=== PATIENT | female | born 1970 | race African-American/Black ===

== ENCOUNTER 2018-03-07 19:02 | Inpatient (IN) | payer BC, OTHER ==
[~2018-03-07] VITALS: Ht 157.5 cm; Wt 72.6 kg
--- NOTE | 2018-03-07 20:00 | NUR ---
INTAKE ASSESSMENT Pt appeared intoxicated,seen holding a coffee mug,when asked "what are you drinking?",she answered "wine".Pt is a/o x 3,lethargic,dozing on and off,vital signs are stable,no c/o pain noted. Pt is A/O X 3. Pt stated that she has been drinking 3 to 4 bottles of Wine (750 ml each) on a daily basis for approximately past 2 months. Pt stated that she was at a treatment center in December 2017,where she stayed for 22 days and began drinking on the same day when she was discharged. Her longest period of sobriety was 22 days in December 2017,while she was at the treatment center. Prior to that she has been drinking since she was 12 years old.
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
[2018-03-07] MEDS ORDERED: DIAZEPAM 10 MG TABLET PO PRN ×2 (21:45)
[2018-03-07] MEDS ORDERED: MAG HYDROX/AL HYDROX/SIMETH 30 ML LIQUID UDC PO PRN (21:45)
[2018-03-07] MEDS ORDERED: IBUPROFEN 600 MG TABLET PO PRN (21:45)
[2018-03-07] MEDS ORDERED: ONDANSETRON ODT 4 MG TAB.RAPDIS SL PRN (21:45)
[2018-03-07] MEDS ORDERED: THIAMINE HCL 200 MG/2 ML VIAL IM ONE (21:45)
[2018-03-07] MEDS ORDERED: LORAZEPAM 2 MG/1 ML VIAL IM PRN (21:45)
[2018-03-07] MEDS ORDERED: diphenhydrAMINE 50 MG CAPSULE PO PRN (21:45)
[2018-03-07] MEDS ORDERED: DIAZEPAM 5 MG TABLET PO PRN (21:45)
[2018-03-07] MEDS ORDERED: LOPERAMIDE HCL 2 MG CAPSULE PO PRN ×2 (21:45)
[2018-03-07] MEDS ORDERED: ONDANSETRON 4 MG/2 ML VIAL IM PRN (21:45)
[2018-03-07] MEDS ORDERED: CLONIDINE HCL 0.1 MG TABLET PO PRN (21:45)
[2018-03-07] MEDS ORDERED: MAGNESIUM HYDROXIDE 30 ML LIQUID UDC PO PRN (21:45)
[2018-03-07 21:52] LABS: BASOPHILS # (AUTO) 0.1 K/uL (0.0-8.0); EOSINOPHILS # (AUTO) 0.1 K/uL (0.0-0.7); HEMATOCRIT 37.1 % (31.2-41.9); HEMOGLOBIN 12.2 g/dL (10.9-14.3); LYMPHOCYTES # (AUTO) 1.7 K/uL (20.0-40.0); MEAN CORPUSCULAR HEMOGLOBIN 31.3 uug (24.7-32.8); MEAN CORPUSCULAR HGB CONC 33 g/dL (32.3-35.6); MEAN CORPUSCULAR VOLUME 95.4 fL (75.5-95.3); MONOCYTES # (AUTO) 0.3 K/uL (2.0-10.0); MONOCYTES % (AUTO) 5.8 % (0.0-11.0); NEUTROPHILS # (AUTO) 3.5 K/uL (1.8-8.9); NEUTROPHILS % (AUTO) 61.2 % (38.5-71.5); PLATELET COUNT (AUTO) 198 K/uL (179-408); RED BLOOD CELL COUNT(AUTO) 3.89 MIL/uL (3.63-4.92); WHITE BLOOD COUNT (AUTO) 5.6 K/uL (3.8-11.8)
[2018-03-07 22:16] LABS: BILIRUBIN,TOTAL 0.2 mg/dL (0.2-1.0); CREATININE 0.9 mg/dL (0.6-1.3); MAGNESIUM 2.2 mg/dL (1.8-2.4); TOTAL PROTEIN, SERUM 8.2 g/dL (6.4-8.2)
[2018-03-07] MEDS ORDERED: ALBU6.7H INH (22:16)
[2018-03-07] MEDS ORDERED: SERT50TA PO (22:16)
[2018-03-07] MEDS ORDERED: HYDR-3026 PO (22:16)
[2018-03-07] MEDS ORDERED: TRAZ-182 PO (22:16)
[2018-03-07 22:27] LABS: THYROID STIMULATING HORMONE 1.334 mIU/mL (0.358-3.740)
[2018-03-07 22:29] LABS: *AMPHETAMINE, URINE NEGATIVE (NEGATIVE); *BARBITURATE, URINE NEGATIVE (NEGATIVE); *CANNABINOID, URINE NEGATIVE (NEGATIVE); *COCCAINE, URINE NEGATIVE (NEGATIVE); *OPIATE, URINE NEGATIVE (NEGATIVE); *PHENCYCLIDINE SCREEN,URINE NEGATIVE (NEGATIVE)
[2018-03-07 22:53] LABS: *URINE HCG, QUAL NEGATIVE (NEGATIVE)
--- NOTE | 2018-03-07 23:51 | NUR ---
PRN MOTRIN 600 MG PO GIVEN FOR C/O HEADACHE 12/03.WILL MONITOR FOR EFFECTIVENESS.
[2018-03-08] MEDS ORDERED: ONDA4TAB8 SL (00:41)
[2018-03-08] MEDS ORDERED: BISA-79 PO (00:41)
[2018-03-08] MEDS ORDERED: DIPH25CA83 PO (00:41)
[2018-03-08] MEDS ORDERED: PEPP90CA PO (00:41)
--- NOTE | 2018-03-08 01:00 | NUR ---
PRN REASSESSMENT Pi is calm and sleeping in bed,no s/s of distress noted,breathing is even and non labored. All safety measures are in place, call light is within reach, will continue to monitor.
[2018-03-08] MEDS ORDERED: TRIA80OI TP (01:49)
[2018-03-08] MEDS ORDERED: SIME180C7 PO (01:49)
[2018-03-08] MEDS ORDERED: BRIM2.5D OP (01:49)
[2018-03-08] MEDS ORDERED: TRIA100A TP (01:49)
[2018-03-08] MEDS ORDERED: THIA100T13 PO (01:49)
[2018-03-08] MEDS ORDERED: BECL10.62 IH ×2 (01:49)
[2018-03-08] MEDS ORDERED: [UNRECOGNIZED DRUG - CODE] TP (01:49)
[2018-03-08] MEDS ORDERED: hydroxycut (01:49)
[2018-03-08] MEDS ORDERED: PSYL0.5245 PO (01:49)
[2018-03-08] MEDS ORDERED: ALPH1TAB9 PO (01:49)
[2018-03-08] MEDS ORDERED: EPIN0.3A4 IM (01:49)
[2018-03-08] MEDS ORDERED: [UNRECOGNIZED DRUG - OTHER] PO (01:49)
[2018-03-08] MEDS ORDERED: CHOL200059 PO (01:49)
[2018-03-08] MEDS ORDERED: AZEL23SP NS (01:49)
[2018-03-08] MEDS ORDERED: ENZY1CAP5 PO (01:49)
[2018-03-08] MEDS ORDERED: [UNRECOGNIZED DRUG - CODE] PO (01:49)
[2018-03-08] MEDS ORDERED: HYDR50CA5 PO (01:49)
[2018-03-08] MEDS ORDERED: CYAN10009 PO (01:49)
[2018-03-08] MEDS ORDERED: OMEG1CAP74 PO (01:49)
[2018-03-08] MEDS ORDERED: BIOT300T2 PO (01:49)
[2018-03-08] MEDS ORDERED: POLY119P2 PO (01:49)
[2018-03-08] MEDS ORDERED: LACT1CAP57 PO (01:49)
[2018-03-08] MEDS ORDERED: CALC600T12 PO (01:49)
[2018-03-08] MEDS ORDERED: ALBU8.5H8 IH (01:49)
[2018-03-08 04:00] VITALS: BP 100/56
--- NOTE | 2018-03-08 04:00 | NUR ---
Unable to assess for CIWA due to pt being asleep.
--- NOTE | 2018-03-08 06:53 | NUR ---
END OF SHIFT Pt is a 47 y/o female admitted to [facility] for medically supervised withdrawals from Alcohol. Unable to perform a CIWA assessment upon admission due to Pt being heavily intoxicated. Pt was given PRN Motrin for headache and it was noted to be effective.Pt slept 8 hours,fluid intake was 500 ml,voided x1. All safety measures are in place, call light is within reach, will endorse care to day shift nurse to continue to monitor for safety.
[2018-03-08 08:00] VITALS: BP 92/57
--- NOTE | 2018-03-08 08:00 | NUR ---
Start of Shift Notes: Report received from night supervisor nurse. Upon start of shift pt was in bed with eyes closed. Pts expression is anxious and worried. Skin is warm and dry. Pt denies pain at this time. Pt is currently on Valium taper to manage withdrawal symptoms. Bed in lowest position. Side rails up x2. Call light functioning and within reach. All needs attended and met. Will continue to monitor.
--- NOTE | 2018-03-08 08:30 | NUR ---
CIWA 11 Pt noted with tremors, diaphoresis, and anxiety/agitation. CIWA 11.
[2018-03-08] MEDS ORDERED: TUBERCULIN,PURIF.PROT.DERIV. 5 TU/0.1 ML TEST ID ONE (09:00)
[2018-03-08] MEDS ORDERED: 5 DAY TAPER VALIUM-SERENITY PROTOCOL PO PRN (09:00)
[2018-03-08] MEDS: THIAMINE HCL 100 MG TABLET PO SCH (09:15)
[2018-03-08] MEDS: MULTIVITAMINS,THERAPEUTIC TABLET PO SCH (09:15)
[2018-03-08] MEDS: DIAZEPAM 10 MG TABLET PO SCH ×3 (09:16→21:06)
[2018-03-08] MEDS: FOLIC ACID 1 MG TABLET PO SCH (09:16)
[2018-03-08 12:00] VITALS: BP 115/82
--- NOTE | 2018-03-08 12:00 | NUR ---
CIWA 9 Pt noted with slight tremors, slight diaphoresis, and anxiety/agitation. CIWA 9
[2018-03-08] MEDS ORDERED: TRIAMCINOLONE ACET 0.025% OINT 15 GM TUBE TP SCH (14:45)
[2018-03-08] MEDS ORDERED: TRIAMCINOLONE ACETONIDE TOP PRN (14:45)
[2018-03-08] MEDS: DYMISTA NS SCH (15:51)
[2018-03-08] MEDS: LACTOBACILLUS RHAMNOSUS GG 1 EACH CAPSULE PO SCH (15:51)
[2018-03-08 16:00] VITALS: BP 125/93
--- NOTE | 2018-03-08 16:00 | NUR ---
CIWA 8 Pt noted with non-visible tremors, barely sweating, and mild anxiety/agitation. CIWA 8.
[2018-03-08] MEDS: TRIAMCINOLONE ACET 0.1% CREAM 15 GM TUBE TOP SCH (16:30)
--- NOTE | 2018-03-08 19:14 | NUR ---
End of Shift Note: Pt currently in room, resting. Pt had no complaints during shift. No PRNs given. Pts last CIWA was 8 at 1600. Pt continues on Valium taper to manage withdrawal symptoms. During shift pt was staying in bed without leaving room. Pt noted with some anxiety about leaving room. Encouraged pt to go to group activity. Pt refused to go today. Will continue encouragement. Allowed pt to verbalize feelings. Fall precautions observed. Bed in lowest position. Side rails up x2. Call light functioning and within reach. All needs attended and met. Will endorse to slot shift manager nurse.
--- NOTE | 2018-03-08 19:30 | NUR ---
START OF SHIFT Pt is a 47 y/o female admitted on 03/07/18 for ETOH withdrawal. Pt is on a 5 day Valium taper, tolerating well. Pt received no PRNs and last CIWA 8 during day shift. Upon assessment pt presents with anxiety, sweats, chills, agitation, and unkempt room. Medications due. Safety measures in place. Call light within reach. Will continue to monitor.
[2018-03-08 20:00] VITALS: BP 126/84
--- NOTE | 2018-03-08 20:00 | NUR ---
CIWA ASSESSMENT Pt presents with anxiety, sweats, chills, agitation, and unkempt room. Pt laying in bed watching TV.
[2018-03-09] VITALS: BP 123/83
--- NOTE | 2018-03-09 | NUR ---
CIWA DEFERRED Pt is laying in bed with eyes closed, CIWA deferred, to be assessed when pt is awake per orders. Respirations even and unlabored. Safety measures in place. Call light within reach. Will continue to monitor.
[2018-03-09 04:06] LABS: HEPATITIS B SURFACE AG Negative (Negative)
--- NOTE | 2018-03-09 07:19 | NUR ---
END OF SHIFT Pt is a 47 y/o female admitted on 03/07/18 for ETOH withdrawal. Pt is on a 5 day Valium taper, tolerating well. Pt presented with anxiety, sweats, chills, agitation, disheveled appearance, and unkempt room. Scheduled medication Valium 10 mg administered, effective in S/S of withdrawal as verbalized by pt. Last CIWA 8. Pt slept 9 hours. Intake 1500 ml, void x 2, stool x 0. Safety measures in place. Call light within reach. Pts needs have been met. Endorsed to day shift nurse.
--- NOTE | 2018-03-09 07:40 | NUR ---
START OF SHIFT NOTE Received report from night nurse, 47 year old female admitted for ETOH withdrawal and patient continues with 5 days Valium taper tolerating well. Per endorsement patient received No PRN'S, slept for 9 hours, last CIWA-8. Received patient asleep responsive to verbal and tactile stimuli. Breathing normal no SOB noted. Skin intact warm and dry to touch. All safety measures in place, call light within reach. Will cont with plan of care.
[2018-03-09 08:00] VITALS: BP 139/92
[2018-03-09] MEDS: THIAMINE HCL 100 MG TABLET PO SCH (08:13)
[2018-03-09] MEDS: FOLIC ACID 1 MG TABLET PO SCH (08:13)
[2018-03-09] MEDS: DIAZEPAM 5 MG TABLET PO SCH ×4 (08:13→20:50)
[2018-03-09] MEDS: LACTOBACILLUS RHAMNOSUS GG 1 EACH CAPSULE PO SCH (08:13)
[2018-03-09] MEDS: DYMISTA NS SCH (08:13)
[2018-03-09] MEDS: SERTRALINE HCL 50 MG TABLET PO SCH (08:13)
[2018-03-09] MEDS: MULTIVITAMINS,THERAPEUTIC TABLET PO SCH (08:13)
--- NOTE | 2018-03-09 08:13 | NUR ---
CIWA ASSESSMENT CIWA score noted-10, patient presented with sad facial expression, anxious, agitated, restless, fatigue, c/o sweats, bilateral hand tremors noted. Patient was given her scheduled medications. Will cont to monitor.
[2018-03-09] MEDS: TRIAMCINOLONE ACET 0.1% CREAM 15 GM TUBE TOP SCH ×2 (08:14→16:10)
--- NOTE | 2018-03-09 10:42 | NUR ---
Therapist prompted client to attend all group therapy sessions.
[2018-03-09 12:00] VITALS: BP 127/85
--- NOTE | 2018-03-09 12:10 | NUR ---
CIWA ASSESSMENT CIWA score noted-9, patient continues to presented with following s/s of such as anxious, agitated, restless, fatigue, sweats, bilateral hand tremors. Patient received her scheduled medications. Will cont to monitor.
[2018-03-09 16:00] VITALS: BP 123/82
--- NOTE | 2018-03-09 19:05 | NUR ---
END OF SHIFT NOTE Gave report to night nurse, 47 year old female admitted for ETOH withdrawal and continues with Valium taper tolerating well. Skin intact warm and dry to touch. Patient presented with sad facial expression, anxious, irritable, anhedonia, depressed mood, anxious, agitated, body aches, bilateral hand tremors. Patient was given her scheduled medications. No PRN administered during shift. Patient was not well enough to participates in group today and rested in her room most of the shift. Appetite good, encourage PO fluids as tolerated. Vital signs WNL. Patient denies any SI/HI. Last CIWA score was 10 at 1600. All needs attended and met. All safety measures in place. Endorse patient to night nurse in stable condition.
--- NOTE | 2018-03-09 19:10 | NUR ---
Start of Shift Received 47 year old female patient admitted 03/07/18 to [facility] for medically supervised withdrawal from ETOH. Pt is currently on day 2 of a 5 day Valium taper, which she is tolerating well. Pt did not receive any PRN medications on day shift. Last CIWA 10 @1600. Pt in room watching TV. Pt is awake, alert, anxious, agitated, flat affect, and isolative. Bed is low, side rails up x 2, and call groves in reach. Will continue to monitor.
[2018-03-09 20:00] VITALS: BP 118/85
--- NOTE | 2018-03-09 20:00 | NUR ---
CIWA 9 Pt is awake, alert, anxious, agitated, flat affect, and isolative.
[2018-03-09] MEDS: diphenhydrAMINE 50 MG CAPSULE PO PRN (20:58)
--- NOTE | 2018-03-09 20:58 | NUR ---
PRN Benadryl Pt requested something to help sleep. PRN Benadryl given per order. Will monitor effect.
--- NOTE | 2018-03-09 21:59 | NUR ---
Reassess PRN Benadryl Medication effective. Pt resting with eyes closed. Respirations are even and unlabored. Continue to monitor.
--- NOTE | 2018-03-10 | NUR ---
CIWA deferred and Vitals refused Pt resting with eyes closed. Respirations are even and unlabored. CIWA deferred and pt refused vitals. Continue to monitor.
--- NOTE | 2018-03-10 04:00 | NUR ---
CIWA deferred and Vitals refused Pt resting with eyes closed. Respirations are even and unlabored. CIWA deferred and pt refused vitals. Continue to monitor.
--- NOTE | 2018-03-10 06:46 | NUR ---
End of Shift Endorsing 47 year old female patient admitted 03/07/18 to [facility] for medically supervised withdrawal from ETOH. Pt is currently on day 3 of a 5 day Valium taper, which she is tolerating well. Pt received PRN Benadryl on restaurant shift leader. Last CIWA 9 @1999. Pt resting with eyes closed. Respirations are even and unlabored. Bed is low, side rails up x 2, and call groves in reach. PO intake 855 ml, voided x 2, BM x 0, and slept 9 hours.
[2018-03-10 08:00] VITALS: BP 119/80
--- NOTE | 2018-03-10 08:00 | NUR ---
Start of Shift Notes/CIWA Assessment: Received endorsement from night nurse. Patient is a 47 year old female admitted for ETOH withdrawal who was placed on a 3-day Valium taper as ordered. No adverse reactions noted. Per night report, patient was given PRN Benadryl during the night. Last CIWA 9. Slept for 9 hours. Received patient in her room. Alert and oriented x 4. DenieS S/I or H/I noted. No AV hallucinations noted. Appears worried, diaphoretic, gross tremors with worried facial expression. Garbage found around the room. Encouraged patient to maintain her personal hygiene and space. Educated patient on her current plan of care for the day and her medication regimen. Encouraged oral fluid intake and encouraged group participation to learn new skills to prevent relapse. All needs met and attended. Will continue to monitor.
[2018-03-10] MEDS: DYMISTA NS SCH (08:22)
[2018-03-10] MEDS: TRIAMCINOLONE ACET 0.1% CREAM 15 GM TUBE TOP SCH ×2 (08:23→17:00)
[2018-03-10] MEDS: LACTOBACILLUS RHAMNOSUS GG 1 EACH CAPSULE PO SCH (08:25)
[2018-03-10] MEDS: SERTRALINE HCL 50 MG TABLET PO SCH (08:25)
[2018-03-10] MEDS: THIAMINE HCL 100 MG TABLET PO SCH (08:25)
[2018-03-10] MEDS: FOLIC ACID 1 MG TABLET PO SCH (08:25)
[2018-03-10] MEDS: DIAZEPAM 5 MG TABLET PO SCH ×3 (08:25→21:06)
[2018-03-10] MEDS: MULTIVITAMINS,THERAPEUTIC TABLET PO SCH (08:25)
[2018-03-10 12:00] VITALS: BP 108/65
--- NOTE | 2018-03-10 12:23 | NUR ---
CIWA Assessment: CIWA 11, patient continues to present with s/s of withdrawal mb gross tremors, anxiety, sweating, agitation, restlessness and fatigue. Offered PRNs. Support provided. Will continue to monitor.
--- NOTE | 2018-03-10 15:00 | NUR ---
Valium 5 mg PO not administered: Patient refused her 1500 dose of Valium 5 mg PO. She states "It's making me too sleepy and I want to go to group." Educated patient on seizure risk and benefits of taking meds but patient still refused. Offered 3 x still refused. Valium 5 mg PO not administered.
[2018-03-10 16:00] VITALS: BP 96/65
--- NOTE | 2018-03-10 17:15 | NUR ---
Kenalog cream at 1700 not administered: Patient refused Kenalog cream at this time for her scalp. She states "I don't need it right now." Education provided. Will continue to monitor.
--- NOTE | 2018-03-10 19:01 | NUR ---
End of Shift Notes: Patient continues to be on 3-day Valium taper as ordered to manage symptoms related to ETOH withdrawal. VS monitored. No significant abnormalities noted. Withdrawal symptoms were closely monitored. Initial CIWA 14, patient presented with diaphoresis, facial flushing, gross tremors, anxiety, agitation, restlessness, worried facial expression, difficulty concentrating and generalized discomfort. Last CIWA 11. Patient verbalized that Valium has been effective in reducing her withdrawal symptoms. All meds given as ordered. Patient was encouraged to participate in group and activities due to episodes of self isolaton. Appetite good. All needs met and attended. Will continue to monitor closely.
--- NOTE | 2018-03-10 19:30 | NUR ---
Start of Shift Patient Received. Per endorsement, Patient continues on a modified 5 day Valium. Patient has been noted to be isolative to room and non-compliant with group and social activities. No PRN medications administered. Patient was noted to refuse 1500 scheduled dose of Valium. Last noted CIWA 11. Upon rounds, patient is noted in bed awake alert and verbally responsive. Breathing even and non labored. Patient is noted to be disheveled with worried affect. She is noted to be anxious, restless, tremulous to touch, intermittent chills and sweats. Reviewed 2100 medications with patient and she was able to verbalize understanding. Encouraged patient to attended current group meeting but she refused. All needs attended to promptly. Will continue plan of care as ordered.
--- NOTE | 2018-03-10 20:00 | NUR ---
CIWA Assessment Patient continues to be monitored for increased signs and symptoms of ETOH Withdrawal. She is noted with increased anxiety, restlessness, is easily irritable, intermittent chills and sweats, and is tremulous to touch. Will administer medications as ordered.
[2018-03-10 20:52] VITALS: BP 114/76
[2018-03-10] MEDS: diphenhydrAMINE 50 MG CAPSULE PO PRN (21:08)
--- NOTE | 2018-03-10 21:09 | NUR ---
PRN medication Administration Patient is noted verbalizing inability of falling asleep. PRN Benadryl administered. Will continue to monitor.
--- NOTE | 2018-03-10 22:00 | NUR ---
PRN Medication Reassessment Patient is noted in bed with eyes closed. Breathing even and non labored. No signs of restlessness or facial grimacing noted. patient received PRN Benadryl with medication noted to be effective. Will continue to monitor.
--- NOTE | 2018-03-11 | NUR ---
CIWA and Vitals Patient is noted in bed with eyes closed. Breathing even and non labored. patient refused vitals. No facial grimacing or restlessness noted. CIWA not able to be completed as per order. Will continue to monitor.
--- NOTE | 2018-03-11 04:10 | NUR ---
CIWA and Vitals patient is noted in bed with eyes closed. Breathing even and non labored. Vitals Refused. No restlessness or facial grimacing noted. CIWA not able to be completed as per order. Will continue to monitor.
--- NOTE | 2018-03-11 07:16 | NUR ---
End of Shift Patient is in bed with eyes closed. Breathing even and non labored. Patient continues on a modified 5 day valium taper. She continues to be isolative to room. Encouraged patient to participate in social activities but patient refused. Patient received PRN Benadryl with medication noted to be effective. She was noted to sleep a total of 7 hours. Last noted CIWA 11. Patient was noted to be anxious, restless, easily agitated, tremulous to touch, and intermittent sweats. All needs attended to promptly. Will endorse to continue plan of care as ordered.
[2018-03-11 08:00] VITALS: BP 114/80
--- NOTE | 2018-03-11 08:00 | NUR ---
Start of Shift Notes/CIWA Assessment: Received endorsement from night nurse. Patient is a 47 year old female admitted for ETOH withdrawal who was placed on a 3-day Valium taper as ordered. No adverse reactions noted. Per night report, patient was given PRN Benadryl during the night. Last CIWA 14. Slept for 7 hours. Received patient in her room. Alert and oriented x 4. Denies S/I or H/I noted. No AV hallucinations noted. Appears worried, diaphoretic, gross tremors with worried facial expression. Encouraged patient to maintain her personal hygiene and space. Educated patient on her current plan of care for the day and her medication regimen. Encouraged oral fluid intake and encouraged group participation to learn new skills to prevent relapse. All needs met and attended. Will continue to monitor.
[2018-03-11] MEDS: DYMISTA NS SCH (08:55)
[2018-03-11] MEDS: LACTOBACILLUS RHAMNOSUS GG 1 EACH CAPSULE PO SCH (08:56)
[2018-03-11] MEDS: MULTIVITAMINS,THERAPEUTIC TABLET PO SCH (08:56)
[2018-03-11] MEDS: TRIAMCINOLONE ACET 0.1% CREAM 15 GM TUBE TOP SCH ×2 (08:56→16:30)
[2018-03-11] MEDS: FOLIC ACID 1 MG TABLET PO SCH (08:56)
[2018-03-11] MEDS: SERTRALINE HCL 50 MG TABLET PO SCH (08:56)
[2018-03-11] MEDS: THIAMINE HCL 100 MG TABLET PO SCH (08:56)
[2018-03-11] MEDS: DIAZEPAM 5 MG TABLET PO SCH ×2 (08:56→21:03)
--- NOTE | 2018-03-11 09:47 | NUR ---
Therapist prompted client to attend group therapy.
[2018-03-11 12:00] VITALS: BP 137/99
--- NOTE | 2018-03-11 12:39 | NUR ---
CIWA Assessment: CIWA 10, patient presents with anxiety, agitation, gross tremors, fatigue, sweats and generalized discomfort. Offered PRNs. Support provided.
[2018-03-11 16:00] VITALS: BP 135/81
--- NOTE | 2018-03-11 16:26 | NUR ---
CIWA Assessment: CIWA 10, patient presents with anxiety, agitation, gross tremors, fatigue, sweats and generalized discomfort. Offered PRNs. Support provided.
--- NOTE | 2018-03-11 19:01 | NUR ---
End of Shift Notes: Patient continues to be on 3-day Valium taper as ordered to manage symptoms related to ETOH withdrawal. VS monitored. No significant abnormalities noted. Withdrawal symptoms were closely monitored. Initial CIWA 14, patient presented with diaphoresis, facial flushing, gross tremors, anxiety, agitation, restlessness, worried facial expression, difficulty concentrating and generalized discomfort. Last CIWA 10. Patient verbalized that Valium has been effective in reducing her withdrawal symptoms. All meds given as ordered. Patient was encouraged to participate in group and activities due to episodes of self isolaton. Appetite good. All needs met and attended. Will continue to monitor closely.
--- NOTE | 2018-03-11 19:30 | NUR ---
Start of Shift Patient Received. Patient continues on a modified Valium taper. Patient continues to be isolative to room and non compliant with group and social activities. No PRN medications administered. Upon rounds patient is noted in bed, awake, alert and verbally responsive. Patient is noted to be restless and noted to avoid eye contact. Patient is able to verbalize that taper medications have been effective in minimizing signs and symptoms of withdrawal. Reviewed 2100 medications with patient and she verbalized understanding. All needs attended to promptly. Will continue plan of care as ordered.
--- NOTE | 2018-03-11 20:00 | NUR ---
CIWA Assessment Patient continues to be monitored for increased signs and symptoms of withdrawal. She is noted with increased anxiety, irritability, restlessness, increased chills and sweats, and tremulous to touch. Medication administered as per order. Will continue to monitor.
[2018-03-11 20:51] VITALS: BP 120/87
[2018-03-11] MEDS: diphenhydrAMINE 50 MG CAPSULE PO PRN (21:03)
[2018-03-11] MEDS: HYDROXYZINE PAMOATE 25 MG CAPSULE PO PRN (21:03)
--- NOTE | 2018-03-11 21:08 | NUR ---
PRN Medication Administration Patient is noted in bed and verbalizes increased anxiety, agitation, restlessness, inability of falling asleep. PRN Benadryl and Vistaril administered. Will continue to monitor.
--- NOTE | 2018-03-11 22:00 | NUR ---
PRN Medication Reassessment Patient is noted in bed with eyes closed. Breathing even and non labored. No signs of restless or discomfort noted. PRN Benadryl and Vistaril noted to be effective. Will continue to monitor.
--- NOTE | 2018-03-12 00:13 | NUR ---
CIWA and Vitals Patient is noted in bed with eyes closed. Breathing even and non labored. No signs of restlessness or discomfort noted. Vitals refused. CIWA not able to be completed as per ordered. Will continue to monitor.
--- NOTE | 2018-03-12 04:00 | NUR ---
CIWA and Vitals Patient is noted in bed with eyes closed. Breathing even and non labored. No signs of restlessness or facial grimacing noted. Vitals Refused. CIWA not able to be completed as per order. Will continue to monitor.
--- NOTE | 2018-03-12 06:59 | NUR ---
End of Shift Patient is in bed with eyes closed. Breathing even and non labored. Patient continues on a modified Valium taper. Patient continues to be isolative to room and non compliant with group and social activities. Patient received PRN Vistaril and Benadryl with medication noted to be effective. Last noted CIWA 9. Patient noted to sleep a total of 8 hours. All needs attended to promptly. Will endorse to continue plan of care as ordered.
--- NOTE | 2018-03-12 07:18 | NUR ---
Start Of Shift Patient is a 47 yr old female who was admitted to [facility] on 03/07/18 for a medically supervised withdrawal from ETOH ( Wine), she has been placed on a 5 day Valium taper and today is day 5.PRN medications given on PM shift: Benadryl and Vistaril, she slept for 7+ hours and last CIWA was 9. Currently she is in bed asleep, breathing even and unlabored, call light within reach.Continue to follow MD plan of care and offer support and encouragement.
[2018-03-12 08:00] VITALS: BP 110/70
--- NOTE | 2018-03-12 08:00 | NUR ---
CIWA 10 Patient presents with anxiety, agitation, fine tremors, fatigue, sweats and generalized discomfort. Scheduled Valium 5mg PO given
[2018-03-12] MEDS: SERTRALINE HCL 50 MG TABLET PO SCH (08:24)
[2018-03-12] MEDS: LACTOBACILLUS RHAMNOSUS GG 1 EACH CAPSULE PO SCH (08:24)
[2018-03-12] MEDS: MULTIVITAMINS,THERAPEUTIC TABLET PO SCH (08:24)
[2018-03-12] MEDS: THIAMINE HCL 100 MG TABLET PO SCH (08:24)
[2018-03-12] MEDS: PROAIR HFA (ALBUTEROL SULFATE) IH PRN (08:24)
[2018-03-12] MEDS: FOLIC ACID 1 MG TABLET PO SCH (08:24)
[2018-03-12] MEDS: DYMISTA NS SCH (08:25)
[2018-03-12] MEDS: TRIAMCINOLONE ACET 0.1% CREAM 15 GM TUBE TOP SCH ×2 (08:25→17:00)
[2018-03-12] MEDS ORDERED: DIAZEPAM 5 MG TABLET PO SCH (09:00)
[2018-03-12] MEDS ORDERED: SERT50TA PO (11:07)
[2018-03-12] MEDS ORDERED: HYDR50CA5 PO (11:07)
[2018-03-12] MEDS ORDERED: DIPH50CA37 PO (11:07)
[2018-03-12 12:00] VITALS: BP 120/92
--- NOTE | 2018-03-12 12:00 | NUR ---
CIWA 10 Patient presents with increased anxiety, fine tremors, fatigue, sweats and generalized discomfort. No PRN medications required or requested
[2018-03-12] MEDS: BISACODYL 5 MG TABLET.DR PO PRN (15:55)
--- NOTE | 2018-03-12 15:55 | NUR ---
PRN Bisacodyl 10mg PO PRN given for C/O no BM x 4 days
--- NOTE | 2018-03-12 16:00 | NUR ---
CIWA 9 Patient presents with increased anxiety, fine tremors, fatigue, sweats and constipation x4days PRN Bisacodyl 10mg PO given.
[2018-03-12 16:30] VITALS: BP 115/72
--- NOTE | 2018-03-12 16:55 | NUR ---
PRN Reassess No BM yet, will continue to monitor
--- NOTE | 2018-03-12 19:07 | NUR ---
End Of Shift Patient is a 47 yr old female who was admitted to [facility] on 03/07/18 for a medically supervised withdrawal from ETOH ( Wine), she has been completed a 5 day Valium taper.PRN medications given on this shift: Bisacodyl for constipation. Her withdrawal symptoms have presented as anxiety, fine tremors, fatigue, constipation and generalized discomfort, she had a fluid intake of 1710 ML, 5 Voids and 0 BM and her last CIWA was 9 @ 1600. She has attended groups and is interacting with her peers at times but can also be found isolating in her room. Continue to follow MD plan of care, endorsed to supplier specialist.
--- NOTE | 2018-03-12 19:20 | NUR ---
START OF SHIFT Patient is a 47-year-old female admitted on 04/12 for ETOH withdrawal. Patient has completed a 5-day Valium taper this morning, tolerated well. Patient's last CIWA was 9 per endorsement. Patient received PRN Bisacodyl today for constipation, noted to be ineffective. Upon assessment, patient was received in bed watching television, disheveled with a cluttered, odorous room. Patient avoids conversation and eye contact. Patient complains of anxiety and difficulty sleeping at night. Patient is on fall and seizure precautions with no reported seizure history. Safety measures in place, side rails up x2, bed locked in low position, call light within reach. Will continue to monitor.
[2018-03-12 20:00] VITALS: BP 98/58
--- NOTE | 2018-03-12 20:00 | NUR ---
CIWA 8 Patient reports anxiety, agitation, diaphoresis, and restlessness. Respirations are even and unlabored. Current CIWA is 8. Safety measures in place, call light within reach. Will continue to monitor.
[2018-03-12] MEDS: HYDROXYZINE PAMOATE 25 MG CAPSULE PO PRN (20:51)
[2018-03-12] MEDS: diphenhydrAMINE 50 MG CAPSULE PO PRN (20:51)
--- NOTE | 2018-03-12 20:51 | NUR ---
PRN BENADRYL & VISTARIL Patient reports anxiety and difficulty sleeping, requesting sleep aid and "hydroxyzine." PRN Benadryl and Vistaril given PO. Safety measures in place, side rails up x2, bed locked in low position, call light within reach. Will monitor for effectiveness.
--- NOTE | 2018-03-12 21:51 | NUR ---
PRN BENADRYL & VISTARIL REASSESSMENT Patient reports decreased anxiety. PRN Vistaril noted to be effective. Patient reports some difficulty falling asleep despite the PRN Benadryl. Safety measures in place, side rails up x2, bed locked in low position, call light within reach. Will continue to monitor.
--- NOTE | 2018-03-13 | NUR ---
VITALS REFUSED, CIWA DEFERRED Midnight vitals refused, respirations even and unlabored, 14/min. CIWA deferred at this time due to patient sleeping; to be assessed and scored while patient is awake. Safety measures in place, call light within reach. Will continue to monitor.
--- NOTE | 2018-03-13 04:00 | NUR ---
VITALS REFUSED, CIWA DEFERRED Vital signs refused at this time, CIWA deferred due to patient sleeping; to be assessed while patient is awake. Respirations even and unlabored, 16/min. Safety measures in place, side rails up x2, bed locked in low position, call light within reach. Will continue to monitor.
--- NOTE | 2018-03-13 07:15 | NUR ---
END OF SHIFT Patient is a 47-year-old female admitted on 04/12 for ETOH withdrawal. Patient has completed a 5-day Valium taper yesterday, tolerated well. Patient's last CIWA was 8. Patient received PRN Benadryl and PRN Vistaril, both noted to be effective. Patient slept for 9 hours, total intake of 1,355mL, void x3, stool x0. Patient is on fall and seizure precautions with no reported seizure history. Safety measures in place, side rails up x2, bed locked in low position, call light within reach. Will endorse to day shift.
--- NOTE | 2018-03-13 07:30 | NUR ---
Start Of Shift Patient is a 47 yr old female who was admitted to [facility] on 03/07/18 for a medically supervised withdrawal from ETOH ( Wine), she has completed a 5 day Valium taper and will be discharged tomorrow to [facility].PRN medications given on PM shift: Benadryl and Vistaril, she slept for 9+ hours and last CIWA was 8. Currently she is in bed asleep, breathing even and unlabored, call light within reach.Continue to follow MD plan of care and offer support and encouragement.
[2018-03-13 08:00] VITALS: BP 118/77
[2018-03-13] MEDS: FOLIC ACID 1 MG TABLET PO SCH (08:48)
[2018-03-13] MEDS: TRIAMCINOLONE ACET 0.1% CREAM 15 GM TUBE TOP SCH ×3 (08:48→08:55)
[2018-03-13] MEDS: MULTIVITAMINS,THERAPEUTIC TABLET PO SCH (08:48)
[2018-03-13] MEDS: THIAMINE HCL 100 MG TABLET PO SCH (08:48)
[2018-03-13] MEDS: PROAIR HFA (ALBUTEROL SULFATE) IH PRN (08:48)
[2018-03-13] MEDS: LACTOBACILLUS RHAMNOSUS GG 1 EACH CAPSULE PO SCH (08:48)
[2018-03-13] MEDS: SERTRALINE HCL 50 MG TABLET PO SCH (08:48)
[2018-03-13] MEDS: DYMISTA NS SCH (08:51)
--- NOTE | 2018-03-13 09:05 | NUR ---
WA 8 Patients withdrawal symptoms present as fatigue,lethargy,restlessness and mild sensitivity to light No PRN medications requested or required tho offered
[2018-03-13 12:00] VITALS: BP 106/63
--- NOTE | 2018-03-13 12:00 | NUR ---
WA 8 Patients withdrawal symptoms present as fatigue,lethargy,restlessness and mild sensitivity to light No PRN medications requested or required tho offered
--- NOTE | 2018-03-13 12:49 | NUR ---
Therapist prompted client to attend all group therapy sessions.
--- NOTE | 2018-03-13 15:59 | NUR ---
WA 8 Patients withdrawal symptoms present as fatigue,lethargy,restlessness and mild sensitivity to light No PRN medications requested or required tho offered
[2018-03-13 17:00] VITALS: BP 96/62
--- NOTE | 2018-03-13 19:19 | NUR ---
End Of Shift Patient is a 47 yr old female who was admitted to [facility] on 03/07/18 for a medically supervised withdrawal from ETOH ( Wine), she has been completed a 5 day Valium taper and will discharge in the AM to [facility]. No PRN medications were given on this shift. Her withdrawal symptoms have presented as anxiety, fine tremors, fatigue and generalized discomfort, she had a fluid intake of 2175 ML, 3 Voids and 2 BM and her last CIWA was 8 @ 1600. She has attended groups and is interacting with her peers at times but can also be found isolating in her room. Continue to follow MD plan of care, endorsed to shift foreman
--- NOTE | 2018-03-13 19:30 | NUR ---
START OF SHIFT Pt is a 47 y/o female admitted on 03/07/18 for ETOH withdrawal. Pt finished a 5 day Valium taper and is scheduled to be d/c tomorrow. No PRNs administered during day shift and last CIWA 8. Upon assessment pt presents with anxiety, difficulty sleeping, unkempt room, slumped posture, restlessness, and constipation. Medications due. Safety measures in place. Call light within reach. Will continue to monitor.
[2018-03-13] MEDS: BISACODYL 5 MG TABLET.DR PO PRN (19:42)
--- NOTE | 2018-03-13 19:42 | NUR ---
PRN DULCOLAX ADMINISTRATION Pt requests Dulcolax for constipation. Safety measures in place. Call light within reach. Will continue to monitor.
[2018-03-13 20:00] VITALS: BP 119/60
--- NOTE | 2018-03-13 20:00 | NUR ---
CIWA ASSESSMENT CIWA 6. Pt presents with anxiety, difficulty sleeping, unkempt room, slumped posture, restlessness, and constipation
--- NOTE | 2018-03-13 20:42 | NUR ---
PRN DULCOLAX REASSESSMENT No BM at this time. Will continue to monitor. Encouraged fluids.
[2018-03-13] MEDS: diphenhydrAMINE 50 MG CAPSULE PO PRN (20:54)
[2018-03-13] MEDS: HYDROXYZINE PAMOATE 25 MG CAPSULE PO PRN (20:54)
--- NOTE | 2018-03-13 20:54 | NUR ---
PRN BENADRYL AND VISTARIL ADMINISTRATION Pt requests Benadryl for sleep and Vistaril for anxiety. Safety measures in place. Call light within reach. Will continue to monitor.
--- NOTE | 2018-03-13 21:54 | NUR ---
PRN BENADRYL AND VISTARIL REASSESSMENT Pt laying in bed with eyes closed, medications noted effective. Safety measures in place. Call light within reach. Will continue to monitor.
--- NOTE | 2018-03-14 | NUR ---
CIWA DEFERRED AND VITALS REFUSED Pt laying in bed with eyes closed, CIWA deferred, to be assessed when pt is awake per orders. Vitals refused. Respirations even and unlabored. Safety measures in place. Call light within reach. Will continue to monitor.
--- NOTE | 2018-03-14 07:10 | NUR ---
END OF SHIFT Pt is a 47 y/o female admitted on 03/07/18 for ETOH withdrawal. Pt finished a 5 day Valium taper and is scheduled to be d/c today. Pt presented with anxiety, difficulty sleeping, unkempt room, slumped posture, restlessness, and constipation. Scheduled medications and PRN Benadryl, Vistaril and Dulcolax administered. Pt slept 10 hours. Intake 796 ml, void x 1 , stool x 0. Safety measures in place. Call light within reach. Endorsed to day shift nurse.
--- NOTE | 2018-03-14 07:30 | NUR ---
Start Of Shift Patient is a 47 yr old female who was admitted to [facility] on 03/07/18 for a medically supervised withdrawal from ETOH ( Wine), she has completed a 5 day Valium taper and will be discharged this afternoon to [facility].PRN medications given on PM shift: Benadryl, bisacodyl and Vistaril, she slept for 10 hours and last CIWA was 6. Currently she is in bed asleep, breathing even and unlabored, call light within reach.Continue to follow MD plan of care and offer support and encouragement.
[2018-03-14 08:00] VITALS: BP 105/68
--- NOTE | 2018-03-14 09:00 | NUR ---
CIWA 5 Patient presents with fatigue,restlessness and increased anxiety
[2018-03-14] MEDS: THIAMINE HCL 100 MG TABLET PO SCH (09:11)
[2018-03-14] MEDS: FOLIC ACID 1 MG TABLET PO SCH (09:11)
[2018-03-14] MEDS: SERTRALINE HCL 50 MG TABLET PO SCH (09:11)
[2018-03-14] MEDS: MULTIVITAMINS,THERAPEUTIC TABLET PO SCH (09:11)
[2018-03-14] MEDS: LACTOBACILLUS RHAMNOSUS GG 1 EACH CAPSULE PO SCH (09:11)
[2018-03-14] MEDS: DYMISTA NS SCH (09:14)
[2018-03-14] MEDS: TRIAMCINOLONE ACET 0.1% CREAM 15 GM TUBE TOP SCH (09:14)
[2018-03-14 12:00] VITALS: BP 90/54
--- NOTE | 2018-03-14 12:08 | NUR ---
CIWA 5 Patient presents with fatigue,restlessness,diaphoresis and increased anxiety
--- NOTE | 2018-03-14 16:02 | NUR ---
Discharge Note Patient has signed and dated all DC paperwork, all prescriptions and personal belongings placed in a zip tied bag.Patient states no SI/HI at this time Patient ambulated off the unit and was picked up by "[facility] " for transport to "[facility]"
== END 2018-03-14 16:02 | disposition other institution (70) | DRG 895 ==
LOC: SRC 19:41
PROVIDERS: ADMIT Family Medicine Addiction Medicine; ATTEND Family Medicine Addiction Medicine
PROC: HZ2ZZZZ Detoxification Services for Substance Abuse Treatment (ICD-10-PCS; principal; 2018-03-07)
PROC: HZ31ZZZ Individual Counseling for Substance Abuse Treatment, Behavioral (ICD-10-PCS; 2018-03-09)
PROC: HZ41ZZZ Group Counseling for Substance Abuse Treatment, Behavioral (ICD-10-PCS; 2018-03-11)
DX: F10.230 Alcohol dependence with withdrawal, uncomplicated (principal); F33.2 Major depressive disorder, recurrent severe without psychotic features; F10.220 Alcohol dependence with intoxication, uncomplicated; Y90.8 Blood alcohol level of 240 mg/100 ml or more; J45.909 Unspecified asthma, uncomplicated; L30.9 Dermatitis, unspecified; Z81.1 Family history of alcohol abuse and dependence; Z91.5 Personal history of self-harm; F41.9 Anxiety disorder, unspecified; Z79.899 Other long term (current) drug therapy
CPT/HCPCS: 36415; 70030-TC; 80307; 83690; 83735; 84443; 84703; 85025; 86592; 86705; 86803; 87340; 87806; G0480; J3411; Q0163